=== PATIENT | male | born 1995 | race Caucasian/White ===

== ENCOUNTER 2016-05-07 23:57 | Emergency (ER) | payer OTHER ==
--- NOTE | 2016-05-08 00:26 | EDPHY ---
H & P Stated Complaint: left ear pain/difficulty hearing and sinus pain for a couple weeks - Personal History Current Tetanus/Diphtheria Vaccine: No Current Tetanus Diphtheria and Acellular Pertussis (TDAP): No - Medical/Surgical History Hx Asthma: No Hx Chronic Respiratory Disease: No Hx Diabetes: No Hx Cardiac Disease: No Hx Renal Disease: No Hx Cirrhosis: No Hx Alcoholism: No Hx HIV/AIDS: No Hx Splenectomy or Spleen Trauma: No Other PMH: no PMH. no PSH - Social History Smoking Status: Never smoked Time Seen by Provider: 05/08/16 00:17 HPI/ROS: Chief complaint: Left ear discomfort, decreased hearing History of present illness: This is a 21-year-old male who presents to the emergency department for evaluation of left ear discomfort with associated decreased hearing in the left ear. He states he has had symptoms for the last 1 -2 weeks. States in addition he has had sinus problems reporting sinus congestion runny nose. He denies precipitating factors. He denies alleviating factors. He denies other associated signs or symptoms including no fever, no sore throat, no cough, no trouble breathing, no rash. No history of trauma to the ear. No discharge from the ear. (Tyrone King) - Physical Exam Exam: General Appearance: Alert and no distress. Eyes: Pupils equal and round no injection. ENT: Left tympanic membrane is erythematous and edematous with loss of normal anatomic landmarks. No evidence of perforation. The right tympanic membrane is unremarkable. The external auditory canals, external ears and surrounding soft tissue including over the mastoids are unremarkable. Nasopharynx is not injected. There is no rhinorrhea. Oropharynx is not injected. There is no edema. There is no exudate. There is no asymmetry. The uvula is midline. No elevation of the tongue. There is no hoarseness, no drooling, no trismus, no stridor. Respiratory: Chest is non tender, lungs are clear to auscultation. Cardiac: regular rate and rhythm Musculoskeletal: Neck is supple and non tender. Extremities have full range of motion and are non tender. Skin: No rashes or lesions. Neurological: Alert and oriented x4. No meningismus. (Tyrone King) Constitutional: Initial Vital Signs Heart Rate 59 L 05/08/16 00:03 Respiratory Rate 14 05/08/16 00:03 Blood Pressure 162/72 H 02/20/17 00:03 O2 Sat (%) 94 05/08/16 00:03 O2 Delivery Mode Room Air Allergies/Adverse Reactions: No Known Allergies Allergy (Unverified 05/08/16 00:03) Home Medications: Medication Instructions Recorded Amoxicillin Trihydrate 500 mg PO Q8 10 Days 05/08/16 [Amoxicillin 500mg cap] Medical Decision Making ED Course/Re-evaluation: Patient seen under the supervision of my secondary supervising physician Dr. Rox Slade. Patient presents to the emergency department for left ear discomfort and decreased hearing. He does appear to have an acute otitis media. No evidence of complications such as perforation of the tympanic membrane or mastoiditis. He further appears to have an associated sinusitis. I will start him on antibiotics. Home care is discussed. He is asked to follow up with a primary care doctor for recheck. Return precautions are given. Patient voiced understanding and agreement with plan. (Tyrone King) Differential Diagnosis: Included but not limited to otitis media, otitis externa, mastoiditis, sensory hearing loss. (Tyrone King) Other Provider: SARAH Supervision: I was the secondary supervising MD for this case. I agree with the diagnosis and treatment plan. (Rox Slade) - Data Points Medications Given: Discontinued Medications Amoxicillin (Amoxicillin) 500 mg PO EDNOW ONE PRN Reason: Protocol Stop: 05/08/16 00:24 Last Admin: 05/08/16 00:29 Dose: 500 mg Departure - Departure Disposition: Home, Routine, Self-Care Clinical Impression: Sinusitis Qualifiers: Sinusitis location: unspecified location Chronicity: acute Recurrence: non- recurrent Qualified Code(s): J01.90 - Acute sinusitis, unspecified Otitis media Qualifiers: Otitis media type: unspecified Laterality: left Chronicity: unspecified Qualified Code(s): H66.92 - Otitis media, unspecified, left ear Condition: Good Instructions: Amoxicillin (By mouth), Sinusitis (ED), Otitis Media (ED) Additional Instructions: Follow-up with primary care doctor for recheck this week Take all antibiotics as prescribed until finished even feeling better If symptoms worsen or new symptoms develop return to the emergency department for recheck Referrals: HUSSEIN RODRIGUEZ [Other] - As per Instructions Prescriptions: Amoxicillin Trihydrate [Amoxicillin 500mg cap] 500 mg PO Q8 10 Days
[2016-05-08 00:27] VITALS: BP 129/65; PULSE 60; RESP 16; TEMP 96.8; O2SAT 95
== END 2016-05-08 00:35 | disposition home or self-care (01) ==
DX: J01.90 Acute sinusitis, unspecified (principal); H66.92 Otitis media, unspecified, left ear